=== PATIENT | male | born 1955 | race Asian ===

== ENCOUNTER 2018-04-16 14:13 | Emergency (ER) | payer OTHER ==
[~2018-04-16] VITALS: Ht 172.7 cm; Wt 97.3 kg
[2018-04-16 14:25] VITALS: BP 136/81
[2018-04-16 14:54] LABS: BASOPHILS % (AUTO) 0.6 % (0.0-2.0); EOSINOPHILS % (AUTO) 7.1 % (1.0-6.0); HEMATOCRIT 30.8 % (41-53); HEMOGLOBIN 10.5 g/dL (13.5-17.5); LYMPHOCYTES # (AUTO) 1.8 K/uL (1.0-4.8); LYMPHOCYTES % (AUTO) 26.8 % (22.0-44.0); MEAN CORPUSCULAR HEMOGLOBIN 29.8 pg (26.0-34.0); MEAN CORPUSCULAR VOLUME 88 fL (80-100); MONOCYTES # (AUTO) 0.6 K/uL (0.1-1.0); MONOCYTES % (AUTO) 9.5 % (2.0-9.0); NEUTROPHILS # (AUTO) 3.7 K/uL (1.8-7.7); PLATELET COUNT (AUTO) 223 K/uL (150-450); RED BLOOD CELL COUNT(AUTO) 3.51 MIL/uL (4.50-5.90); RED CELL DISTRIBUTION WIDTH 13.6 % (11.5-14.5)
[2018-04-16] MEDS ORDERED: ASPIRIN 325 MG TABLET PO ONE (15:00)
[2018-04-16] MEDS ORDERED: NITROGLYCERIN 2% (1 GM=INCH) PACKET TP ONE (15:00)
[2018-04-16] MEDS ORDERED: NITROGLYCERIN 0.4 MG SUBLINGUAL TABLET #25 SL ONE (15:00)
[2018-04-16 15:21] LABS: CALCIUM, TOTAL 9.4 mg/dL (8.8-10.5); CREATININE 8.23 mg/dL (0.60-1.30); POTASSIUM 4.9 mmol/L (3.5-5.1)
[2018-04-16 15:28] LABS: ALBUMIN 3.7 g/dL (3.4-5.0); BILIRUBIN,TOTAL 0.4 mg/dL (0.1-1.0); TOTAL PROTEIN, SERUM 7.9 g/dL (6.4-8.2)
[2018-04-17 15:57] LABS: GLUCOSE,POINT OF CARE 94 MG/DL (70-110)
== END 2018-04-16 16:10 | disposition home or self-care (01) ==
LOC: EMS 14:14
DX: I13.11 Hypertensive heart and chronic kidney disease without heart failure, with stage 5 chronic kidney disease, or end stage renal disease (principal); N18.6 End stage renal disease; R07.89 Other chest pain; J45.909 Unspecified asthma, uncomplicated; Z99.2 Dependence on renal dialysis
CPT/HCPCS: 93005; 99285

== ENCOUNTER 2022-09-19 11:05 | Emergency (ER) | payer MEDICARE ==
[~2022-09-19] VITALS: Ht 165.1 cm; Wt 81.8 kg
[2022-09-19 12:11] LABS: GLUCOSE,POINT OF CARE 53 MG/DL (70-110)
[2022-09-19] MEDS ORDERED: ACETAMINOPHEN 500 MG TABLET PO ONE (12:30)
[2022-09-19 13:23] VITALS: BP 118/69
[2022-09-19 13:41] LABS: GLUCOSE,POINT OF CARE 113 MG/DL (70-110)
== END 2022-09-19 13:34 | disposition home or self-care (01) ==
LOC: EMS 11:13
DX: S20.211A Contusion of right front wall of thorax, initial encounter (principal); E11.65 Type 2 diabetes mellitus with hyperglycemia; J45.909 Unspecified asthma, uncomplicated; I10 Essential (primary) hypertension; V98.8XXA Other specified transport accidents, initial encounter; Y93.89 Activity, other specified; Y92.89 Other specified places as the place of occurrence of the external cause; Y99.8 Other external cause status
CPT/HCPCS: 82948; 82962; 99283